=== PATIENT | male | born 1960 | race Caucasian/White ===

== ENCOUNTER 2017-11-22 20:46 | Emergency (ER) | payer OTHER ==
[~2017-11-22] VITALS: Ht 175.3 cm; Wt 79.4 kg
[~2017-11-22 20:46] MED LIST: ALBU90OI61 INH; AZIT250 PO; HYDACE5 PO; IBUP800 PO; PRED20 PO
[2017-11-22] MEDS ORDERED: Metformin HCl500 MG PO (21:04)
[2017-11-22] MEDS ORDERED: HYDR1TAB94 PO (21:35)
[2017-11-22] MEDS ORDERED: IBUP600 PO (21:35)
== END 2017-11-22 21:45 | disposition home or self-care (01) ==
LOC: ER 20:46
DX: S52.021A Displaced fracture of olecranon process without intraarticular extension of right ulna, initial encounter for closed fracture (principal); W18.30XA Fall on same level, unspecified, initial encounter; Z79.84 Long term (current) use of oral hypoglycemic drugs
CPT/HCPCS: 29105; 73070; 73100; 99283-25

== ENCOUNTER 2019-10-10 18:17 | Emergency (ER) | payer OTHER ==
[~2019-10-10] VITALS: Ht 175.3 cm; Wt 79.4 kg
[~2019-10-10 18:17] MED LIST changes: +HYDR1TAB94 PO; +IBUP600 PO; +Metformin HCl500 MG PO
[2019-10-10] MEDS ORDERED: Actos30 MG PO (19:42)
[2019-10-10] MEDS ORDERED: GLYB2.5 PO (19:42)
[2019-10-10] MEDS ORDERED: CEPH500 PO (21:36)
== END 2019-10-10 22:20 | disposition home or self-care (01) ==
LOC: ER 18:17
DX: S67.193A Crushing injury of left middle finger, initial encounter (principal); S61.213A Laceration without foreign body of left middle finger without damage to nail, initial encounter; Z23 Encounter for immunization; Z79.899 Other long term (current) drug therapy; Z79.84 Long term (current) use of oral hypoglycemic drugs; W23.0XXA Caught, crushed, jammed, or pinched between moving objects, initial encounter
CPT/HCPCS: 12002; 73140; 90471; 90714; 99283-25; A9270-GY

== ENCOUNTER → 2023-08-24 | Outpatient (CLI) | payer OTHER ==
[~2023-08-24] MED LIST changes: +Actos30 MG PO; +CEPH500 PO; +GLYB2.5 PO
[2023-08-24 12:13] LABS: Stool Occult Bld Immuno 1 Negative (NEGATIVE)
== END | disposition home or self-care (01) ==
LOC: LAB 10:28 → LAB SHORT 10:28
PROVIDERS: Physician Assistant
DX: Z12.11 Encounter for screening for malignant neoplasm of colon (principal); Z12.12 Encounter for screening for malignant neoplasm of rectum; E11.69 Type 2 diabetes mellitus with other specified complication; E78.49 Other hyperlipidemia
CPT/HCPCS: G0328